=== PATIENT | female | born 1950 | race African-American/Black ===

== ENCOUNTER 2017-03-24 19:23 | Emergency (ER) | payer OTHER ==
[~2017-03-24] VITALS: Ht 157.5 cm; Wt 97.5 kg
[~2017-03-24 19:23] MED LIST: CELEBREX 200 M200 MG PO; COREG; CRESTOR10 MG PO; DUONEB 2.5-0.5 M3 ML INH; LEVAQUIN 500 M500 MG PO; LISINOPRIL40 MG PO; LORTAB 5 MG/5001 TA1 PO; METFORMIN 500500 MG PO; PHENERGAN 25 MG25 M1 PO; PREDNISONE 20 M20 M1 PO; PRILOSEC40 MG PO; PROMETHAZINE-C120 ML PO; PROTONIX40 MG PO; PROVENTIL HFA6.7 G1 INH
[2017-03-24 19:59] LABS: ANION GAP 5 mmol/L (7-16); BUN 21 mg/dL (7-18); CALCIUM 8.8 mg/dL (8.5-10.1); CHLORIDE 107 mmol/L (98-107); CO2 26 mmol/L (21-32); CREATININE 1.3 mg/dL (0.6-1.0); GLUCOSE 236 mg/dL (74-106); POTASSIUM 3.6 mmol/L (3.5-5.1); SODIUM 138 mmol/L (136-145)
[2017-03-24 20:00] LABS: BASOPHILS 0.8 % (0.0-2.0); EOSINOPHILS 1.1 % (0.0-3.0); HEMATOCRIT 35.7 % (37.0-47.0); HEMOGLOBIN 11.8 gm/dL (12.0-15.0); LYMPHOCYTES 37.3 % (24.0-44.0); MANUAL DIFF NO; MCH 28.2 pg (26.0-34.0); MCHC 33.1 g/dL (28.0-37.0); MCV 85.3 fL (80.0-100.0); MONOCYTES 6.2 % (1.0-8.0); PLATELET COUNT 209 thou/uL (150-400); POLYS 54.6 % (36.0-66.0); RBC 4.19 mil/uL (4.20-5.00); RDW 15.2 % (10.5-14.5); WBC 10.9 thou/uL (4.0-11.0)
[2017-03-24 20:04] LABS: URINE BILIRUBIN NEGATIVE (Negative); URINE BLOOD 1+ (Negative); URINE COLOR YELLOW; URINE GLUCOSE-RANDOM* TRACE (Negative); URINE KETONES NEGATIVE (Negative); URINE NITRITE NEGATIVE (Negative); URINE PROTEIN (DIPSTICK) 3+ (Negative); URINE SPECIFIC GRAVITY 1.025 (1.003-1.035); URINE UROBILINOGEN 0.2 E.U./dl (0.2-1.0)
[2017-03-24 20:05] LABS: ALBUMIN 2.8 g/dL (3.4-5.0); ALKALINE PHOSPHATASE 56 U/L (46-116); DIRECT BILIRUBIN < 0.1 mg/dL (<0.1-0.3); SGOT 12 U/L (15-37); SGPT 18 U/L (30-65); TOTAL BILIRUBIN 0.1 mg/dL (<0.1-1.0); TOTAL PROTEIN 7.2 g/dL (6.4-8.2)
[2017-03-24 20:11] LABS: BACTERIA None Seen /HPF (None Seen); CASTS None Seen /LPF (None Seen); CRYSTALS None Seen /LPF (None Seen); SQUAMOUS >10 Many /LPF (0-3); URINE RBC 0-2 Rare /HPF (0-2); URINE WBC 0-5 Rare /HPF (0-5)
[2017-03-24] MEDS ORDERED: NORVASC5 MG PO (21:21)
[2017-03-24] MEDS ORDERED: LASIX 20 MG TAB20 MG PO (21:23)
[2017-03-24] MEDS ORDERED: ATIVAN1 MG PO (21:24)
[2017-03-24] MEDS ORDERED: IBUPROFEN 600600 M1 PO (22:20)
[2017-03-24] MEDS ORDERED: ULTRAM 50MG TAB50 MG PO (22:20)
[2017-03-24] MEDS ORDERED: ONDANSETRON HCL4 M2 PO (22:52)
[2017-03-24 22:56] VITALS: BP 153/54
== END 2017-03-24 22:57 | disposition home or self-care (01) ==
LOC: ER 19:23
PROVIDERS: Nurse Practitioner
DX: R10.31 Right lower quadrant pain (principal); M54.5 Low back pain; J45.909 Unspecified asthma, uncomplicated; I10 Essential (primary) hypertension; F17.210 Nicotine dependence, cigarettes, uncomplicated; Z90.710 Acquired absence of both cervix and uterus; Z88.2 Allergy status to sulfonamides

== ENCOUNTER 2017-08-26 15:25 | Emergency (ER) | payer OTHER ==
[~2017-08-26] VITALS: Ht 157.5 cm; Wt 100.7 kg
--- NOTE | ~2017-08-26 | EKG ---
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: Maritza TAYLOR : 1950 Requested By: Mary Adhikari Order Number: [id number] MD: Zach Davis Measurements Intervals [place] Rate: 64 P: 62 ND: 183 QRS: 49 QRSD: 93 T: 118 QT: 427 QTc: 441 Interpretive Statements Sinus rhythm Probable LVH with secondary repol abnrm Compared to ECG 11/08/2013 15:25:50 T-wave abnormality no longer present Electronically Signed On 08-28-2017 7:50:56 SOCIAL MEDIA STRATEGIST by Zach Davis [email or web address] <ELECTRONICALLY SIGNED> By: Zach Davis MD, [facility] 08/28/17 0750 11 11 Zach Davis MD, FAC /EPI
[~2017-08-26 15:25] MED LIST changes: +ATIVAN1 MG PO; +IBUPROFEN 600600 M1 PO; +LASIX 20 MG TAB20 MG PO; +NORVASC5 MG PO; +ONDANSETRON HCL4 M2 PO; +ULTRAM 50MG TAB50 MG PO
[2017-08-26] MEDS ORDERED: NEURONTIN300 MG PO (15:32)
[2017-08-26 15:46] LABS: ABSOLUTE NEUTROPHILS 6.3 thou/uL (1.4-8.2); EOSINOPHILS 1.5 % (0.0-3.0); HEMATOCRIT 37.5 % (37.0-47.0); HEMOGLOBIN 12.4 gm/dL (12.0-15.0); LYMPHOCYTES 35.2 % (24.0-44.0); MCH 28.9 pg (26.0-34.0); MCHC 33.1 g/dL (28.0-37.0); MCV 87.2 fL (80.0-100.0); MONOCYTES 6.1 % (1.0-8.0); PLATELET COUNT 244 thou/uL (150-400); POLYS 56.2 % (36.0-66.0); RDW 16.3 % (10.5-14.5); WBC 11.3 thou/uL (4.0-11.0)
[2017-08-26 15:47] LABS: MANUAL DIFF NO
[2017-08-26 15:54] LABS: ANION GAP 9 mmol/L (7-16); BUN 17 mg/dL (7-18); CALCIUM 8.5 mg/dL (8.5-10.1); CHLORIDE 104 mmol/L (98-107); CO2 25 mmol/L (21-32); CREATININE 1.4 mg/dL (0.6-1.0); GLUCOSE 172 mg/dL (74-106); POTASSIUM 3.6 mmol/L (3.5-5.1); SODIUM 138 mmol/L (136-145)
[2017-08-26 15:59] LABS: ALBUMIN 2.8 g/dL (3.4-5.0); ALKALINE PHOSPHATASE 60 U/L (46-116); SGOT 15 U/L (15-37); SGPT 19 U/L (30-65); TOTAL BILIRUBIN < 0.1 mg/dL (<0.1-1.0); TOTAL PROTEIN 7.2 g/dL (6.4-8.2)
[2017-08-26 16:48] LABS: URINE BILIRUBIN NEGATIVE (Negative); URINE BLOOD 1+ (Negative); URINE COLOR YELLOW; URINE GLUCOSE-RANDOM* NEGATIVE (Negative); URINE KETONES NEGATIVE (Negative); URINE NITRITE NEGATIVE (Negative); URINE PROTEIN (DIPSTICK) 2+ (Negative); URINE SPECIFIC GRAVITY <= 1.005 (1.005-1.035); URINE UROBILINOGEN 0.2 E.U./dl (0.2-1.0)
[2017-08-26 16:58] LABS: BACTERIA 1-9 Few /HPF (None Seen); CASTS None Seen /LPF (None Seen); CRYSTALS None Seen /LPF (None Seen); SQUAMOUS 0-3 Few /LPF (0-3); URINE RBC 0-2 Rare /HPF (0-2); URINE WBC None Seen /HPF (0-5)
[2017-08-26] MEDS ORDERED: KEFLEX500 M1 PO (17:14)
[2017-08-26 17:15] VITALS: BP 149/45
[2017-08-26] MEDS ORDERED: DIFLUCAN200 MG PO (17:31)
[2017-08-27 00:53] LABS: AMP/METHAMP Negative (Negative); BARBITURATES Negative (Negative); BENZODIAZEPINES Negative (Negative); COCAINE Negative (Negative); METHADONE Negative (Negative); OPIATES Negative (Negative); PCP Negative (Negative)
== END 2017-08-26 17:15 | disposition home or self-care (01) ==
LOC: ER 15:25
PROVIDERS: Physician Assistant
DX: R56.9 Unspecified convulsions (principal); N39.0 Urinary tract infection, site not specified; I13.0 Hypertensive heart and chronic kidney disease with heart failure and stage 1 through stage 4 chronic kidney disease, or unspecified chronic kidney disease; N18.9 Chronic kidney disease, unspecified; J45.909 Unspecified asthma, uncomplicated; F17.210 Nicotine dependence, cigarettes, uncomplicated; Z90.710 Acquired absence of both cervix and uterus; Z88.2 Allergy status to sulfonamides

== ENCOUNTER 2018-07-02 22:53 | Inpatient (IN) | payer OTHER ==
[~2018-07-02] VITALS: Ht 157.5 cm; Wt 101.6 kg
--- NOTE | ~2018-07-02 | EKG ---
[address] [address] ELECTROCARDIOGRAM REPORT Name: LAMBERTOKITACarmellaSLOAN L Room #: 227-P ADM IN M.R.#: [id number] Admission: 07/03/18 Attend Phys: Dean Plata MD Discharge: Date of : 54 Report #: [id number] THIS REPORT FOR: //name// 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
[~2018-07-02 22:53] MED LIST changes: +DIFLUCAN200 MG PO; +KEFLEX500 M1 PO; +NEURONTIN300 MG PO
[2018-07-02 23:00] VITALS: BP 205/61
[2018-07-02 23:29] LABS: ABSOLUTE NEUTROPHILS 7.2 thou/uL (1.4-8.2); BASOPHILS 1.1 % (0.0-2.0); HEMATOCRIT 34.9 % (37.0-47.0); HEMOGLOBIN 11.8 gm/dL (12.0-15.0); LYMPHOCYTES 33.4 % (24.0-44.0); MCH 28.9 pg (26.0-34.0); MCHC 33.8 g/dL (28.0-37.0); MCV 85.4 fL (80.0-100.0); MONOCYTES 5.3 % (1.0-8.0); PLATELET COUNT 241 thou/uL (150-400); POLYS 59.2 % (36.0-66.0); RBC 4.08 mil/uL (4.20-5.00); RDW 15.5 % (10.5-14.5); WBC 12.1 thou/uL (4.0-11.0)
[2018-07-02 23:40] LABS: CALCIUM 9.5 mg/dL (8.5-10.1); CREATININE 1.6 mg/dL (0.6-1.0); POTASSIUM 3.2 mmol/L (3.5-5.1)
[2018-07-02 23:45] LABS: ALBUMIN 3.4 g/dL (3.4-5.0); TOTAL BILIRUBIN 0.3 mg/dL (<0.1-1.0); TOTAL PROTEIN 8.1 g/dL (6.4-8.2)
[2018-07-03 04:24] LABS: URINE BILIRUBIN NEGATIVE (Negative); URINE BLOOD TRACE (Negative); URINE CLARITY CLEAR; URINE COLOR YELLOW; URINE GLUCOSE-RANDOM* NEGATIVE (Negative); URINE KETONES NEGATIVE (Negative); URINE LEUKOCYTES-REFLEX NEGATIVE (Negative); URINE NITRITE-REFLEX NEGATIVE (Negative); URINE PROTEIN (DIPSTICK) 2+ (Negative); URINE UROBILINOGEN 0.2 E.U./dl (0.2-1.0)
[2018-07-03 04:40] VITALS: BP 185/42
[2018-07-03 04:51] LABS: CASTS None Seen /LPF (None Seen); SQUAMOUS 0-3 Few /LPF (0-3)
[2018-07-03 04:52] LABS: BACTERIA-REFLEX 1-9 Few /HPF (None Seen); CRYSTALS None Seen /LPF (None Seen); URINE RBC 0-2 Rare /HPF (0-2); URINE WBC-REFLEX 0-5 Rare /HPF (0-5)
[2018-07-03 05:22] VITALS: BP 199/77
[2018-07-03 05:38] VITALS: BP 161/70
[2018-07-03] MEDS ORDERED: HUMALOG100 UNIT/1 SUBQ (06:24)
[2018-07-03] MEDS ORDERED: HYDROCHLOROTHIA25 M2 PO (06:25)
[2018-07-03] MEDS ORDERED: CYMBALTA30 MG PO (06:25)
[2018-07-03] MEDS ORDERED: LEVEMIR SUBQ (06:25)
[2018-07-03] MEDS ORDERED: SPIRONOLACTONE25 M1 PO (06:26)
[2018-07-03] MEDS ORDERED: ADVAIR HFA 230M12 GM INH (06:26)
[2018-07-03 07:05] VITALS: BP 155/36
[2018-07-03 15:54] VITALS: BP 149/56
[2018-07-03 18:50] LABS: URINE BILIRUBIN NEGATIVE (Negative); URINE BLOOD NEGATIVE (Negative); URINE CLARITY CLEAR; URINE COLOR YELLOW; URINE GLUCOSE-RANDOM* NEGATIVE (Negative); URINE KETONES NEGATIVE (Negative); URINE LEUKOCYTES-REFLEX NEGATIVE (Negative); URINE NITRITE-REFLEX NEGATIVE (Negative); URINE PROTEIN (DIPSTICK) 1+ (Negative); URINE UROBILINOGEN 0.2 E.U./dl (0.2-1.0)
[2018-07-03 18:55] LABS: SQUAMOUS 0-3 Few /LPF (0-3)
[2018-07-03 18:56] LABS: BACTERIA-REFLEX 1-9 Few /HPF (None Seen); CASTS None Seen /LPF (None Seen); CRYSTALS None Seen /LPF (None Seen); URINE RBC None Seen /HPF (0-2); URINE WBC-REFLEX 0-5 Rare /HPF (0-5)
[2018-07-03 20:00] VITALS: BP 143/40
[2018-07-04 03:07] LABS: GLYCOHEMOGLOBIN (HGB A1C) 8.5 % (4.8-5.6)
[2018-07-04 04:30] VITALS: BP 168/58
[2018-07-04 06:03] VITALS: BP 132/71
[2018-07-04 06:39] LABS: ABSOLUTE NEUTROPHILS 3.9 thou/uL (1.4-8.2); BASOPHILS 0.7 % (0.0-2.0); EOSINOPHILS 1.8 % (0.0-3.0); HEMATOCRIT 30.6 % (37.0-47.0); HEMOGLOBIN 10.5 gm/dL (12.0-15.0); LYMPHOCYTES 37.7 % (24.0-44.0); MCHC 34.3 g/dL (28.0-37.0); MCV 87.5 fL (80.0-100.0); MONOCYTES 6.3 % (1.0-8.0); PLATELET COUNT 193 thou/uL (150-400); POLYS 53.5 % (36.0-66.0); RDW 15.7 % (10.5-14.5); WBC 7.2 thou/uL (4.0-11.0)
[2018-07-04 06:59] LABS: ALBUMIN 2.8 g/dL (3.4-5.0); CALCIUM 8.6 mg/dL (8.5-10.1); CREATININE 1.2 mg/dL (0.6-1.0); MAGNESIUM 1.8 mg/dL (1.8-2.4); POTASSIUM 4.1 mmol/L (3.5-5.1); TOTAL BILIRUBIN 0.3 mg/dL (<0.1-1.0); TOTAL PROTEIN 6.8 g/dL (6.4-8.2)
[2018-07-04 08:00] VITALS: BP 168/61
[2018-07-04 20:00] VITALS: BP 144/67
[2018-07-05 07:02] LABS: HEMATOCRIT 29.9 % (37.0-47.0); HEMOGLOBIN 10.2 gm/dL (12.0-15.0); MCH 29.4 pg (26.0-34.0); MCV 86.5 fL (80.0-100.0); RBC 3.46 mil/uL (4.20-5.00); WBC 7.6 thou/uL (4.0-11.0)
[2018-07-05 07:18] LABS: ALBUMIN 2.7 g/dL (3.4-5.0); CALCIUM 9.1 mg/dL (8.5-10.1); CREATININE 1.4 mg/dL (0.6-1.0); MAGNESIUM 1.7 mg/dL (1.8-2.4); POTASSIUM 4.1 mmol/L (3.5-5.1); TOTAL BILIRUBIN 0.3 mg/dL (<0.1-1.0); TOTAL PROTEIN 6.8 g/dL (6.4-8.2)
[2018-07-05] MEDS ORDERED: FLAGYL500 MG PO (08:54)
[2018-07-05 10:02] VITALS: BP 198/69
== END 2018-07-05 11:11 | disposition home or self-care (01) | DRG 682 ==
LOC: ER 22:53 → SICU 07-03 04:20 → EROBS 07-03 04:20 → 4E 07-03 05:20 → SICU 07-04 05:54 → ENTRNSPT 07-05 10:29 → EDTRNSPTSTS 07-05 10:32 → SICU 07-05 11:11
PROVIDERS: Emergency Medicine; Internal Medicine; Nurse Practitioner Acute Care
DX: N17.9 Acute kidney failure, unspecified (principal); E43 Unspecified severe protein-calorie malnutrition; Z68.41 Body mass index [BMI] 40.0-44.9, adult; K52.9 Noninfective gastroenteritis and colitis, unspecified; J45.909 Unspecified asthma, uncomplicated; N18.3 Chronic kidney disease, stage 3 (moderate); M79.7 Fibromyalgia; E11.22 Type 2 diabetes mellitus with diabetic chronic kidney disease; E11.42 Type 2 diabetes mellitus with diabetic polyneuropathy; E87.6 Hypokalemia; G40.409 Other generalized epilepsy and epileptic syndromes, not intractable, without status epilepticus; F32.9 Major depressive disorder, single episode, unspecified; E78.5 Hyperlipidemia, unspecified; K21.9 Gastro-esophageal reflux disease without esophagitis; I12.9 Hypertensive chronic kidney disease with stage 1 through stage 4 chronic kidney disease, or unspecified chronic kidney disease; F17.210 Nicotine dependence, cigarettes, uncomplicated; Z90.710 Acquired absence of both cervix and uterus; Z79.4 Long term (current) use of insulin; Z79.51 Long term (current) use of inhaled steroids; Z79.899 Other long term (current) drug therapy; Z88.2 Allergy status to sulfonamides; Z83.3 Family history of diabetes mellitus; Z82.3 Family history of stroke; Z71.6 Tobacco abuse counseling; Z23 Encounter for immunization
CPT/HCPCS: 10084; 15000

== ENCOUNTER 2020-03-05 10:26 | Emergency (ER) | payer OTHER ==
[~2020-03-05] VITALS: Ht 157.5 cm; Wt 93.0 kg
[~2020-03-05 10:26] MED LIST changes: +ADVAIR HFA 230M12 GM INH; +CYMBALTA30 MG PO; +FLAGYL500 MG PO; +HUMALOG100 UNIT/1 SUBQ; +HYDROCHLOROTHIA25 M2 PO; +LEVEMIR SUBQ; +SPIRONOLACTONE25 M1 PO
[2020-03-05] MEDS ORDERED: METFORMIN HCL500 MG PO (10:35)
[2020-03-05] MEDS ORDERED: SINGULAIR 10 MG10 M1 PO (10:35)
[2020-03-05] MEDS ORDERED: FLUTICASONE PRO16 GM INH (10:36)
[2020-03-05 12:01] LABS: URINE BILIRUBIN NEGATIVE (Negative); URINE BLOOD NEGATIVE (Negative); URINE CLARITY CLEAR; URINE COLOR YELLOW; URINE GLUCOSE-RANDOM* NEGATIVE (Negative); URINE KETONES NEGATIVE (Negative); URINE LEUKOCYTES-REFLEX NEGATIVE (Negative); URINE NITRITE-REFLEX NEGATIVE (Negative); URINE PROTEIN (DIPSTICK) 2+ (Negative); URINE UROBILINOGEN 0.2 E.U./dl (0.2-1.0)
[2020-03-05 12:02] LABS: CALCIUM 9.6 mg/dL (8.5-10.1); CREATININE 1.5 mg/dL (0.6-1.0); POTASSIUM 4.3 mmol/L (3.5-5.1)
[2020-03-05 12:06] LABS: ABSOLUTE NEUTROPHILS 5.6 thou/uL (1.4-8.2); BASOPHILS 0.7 % (0.0-2.0); EOSINOPHILS 1.4 % (0.0-3.0); HEMOGLOBIN 11.5 gm/dL (12.0-15.0); LYMPHOCYTES 28.8 % (24.0-44.0); MCH 30.7 pg (26.0-34.0); MCHC 33.9 g/dL (28.0-37.0); MCV 90.7 fL (80.0-100.0); MONOCYTES 5.9 % (1.0-8.0); PLATELET COUNT 225 thou/uL (150-400); POLYS 63.2 % (36.0-66.0); RBC 3.75 mil/uL (4.20-5.00); RDW 14.8 % (10.5-14.5); WBC 8.9 thou/uL (4.0-11.0)
[2020-03-05 12:09] LABS: ALBUMIN 3.2 g/dL (3.4-5.0); TOTAL BILIRUBIN 0.3 mg/dL (0.2-1.0); TOTAL PROTEIN 7.7 g/dL (6.4-8.2)
[2020-03-05 12:28] VITALS: BP 187/50
[2020-03-05 12:49] LABS: CASTS None Seen /LPF (None Seen); URINE RBC None Seen /HPF (0-2)
[2020-03-05 12:50] LABS: BACTERIA-REFLEX 1-9 Few /HPF (None Seen); CRYSTALS None Seen /LPF (None Seen); SQUAMOUS 0-3 Few /LPF (0-3); URINE WBC-REFLEX None Seen /HPF (0-5)
[2020-03-05] MEDS ORDERED: SALONPAS1 EACH TRANSDERM (13:06)
[2020-03-05] MEDS ORDERED: TIZANIDINE HCL2 M1 PO (13:06)
[2020-03-05 13:21] LABS: LARGE PLATELETS RARE
== END 2020-03-05 13:30 | disposition home or self-care (01) ==
LOC: ER 10:26
PROVIDERS: Emergency Medicine
DX: M54.5 Low back pain (principal); I12.9 Hypertensive chronic kidney disease with stage 1 through stage 4 chronic kidney disease, or unspecified chronic kidney disease; E11.22 Type 2 diabetes mellitus with diabetic chronic kidney disease; N18.3 Chronic kidney disease, stage 3 (moderate); J45.909 Unspecified asthma, uncomplicated; F17.210 Nicotine dependence, cigarettes, uncomplicated; Z79.899 Other long term (current) drug therapy; Z88.2 Allergy status to sulfonamides; Z79.4 Long term (current) use of insulin